=== PATIENT | female | born 1975 | race Caucasian/White ===

== ENCOUNTER 2018-01-20 17:58 | Emergency (ER) | payer OTHER ==
[2018-01-20 19:20] LABS: ABSOLUTE BASOPHILS # (AUTO) 0.1 10^3/uL (0.0-0.2); ABSOLUTE EOSINOPHILS # (AUTO) 0.3 10^3/uL (0.0-0.6); ABSOLUTE LYMPHOCYTES (AUTO) 3.2 10^3/uL (0.5-4.7); ABSOLUTE MONOCYTES (AUTO) 0.9 10^3/uL (0.1-1.4); BASOPHILS % (AUTO) 0.4 % (0-2); EOSINOPHILS % (AUTO) 1.5 % (0-6); HEMATOCRIT 37.4 % (36.0-47.0); HEMOGLOBIN 12.7 g/dL (12.0-15.5); LYMPHOCYTES % (AUTO) 17.5 % (13-45); MEAN CORPUSCULAR HEMOGLOBIN 31.4 pg (27.0-33.4); MEAN CORPUSCULAR VOLUME 92 fl (80-97); MONOCYTES % (AUTO) 4.7 % (3-13); PLATELET COUNT 333 10^3/uL (150-450); RED BLOOD COUNT 4.04 10^6/uL (3.72-5.28); RED CELL DISTRIBUTION WIDTH 13.3 % (11.5-14.0); SEGMENTED NEUTROPHILS % (AUTO) 75.9 % (42-78); TOTAL CELLS COUNTED % (AUTO) 100 %; WHITE BLOOD COUNT 18.4 10^3/uL (4.0-10.5)
--- NOTE | 2018-01-20 19:54 | ER Document Report ---
ED General - General Chief Complaint: Vaginal Bleeding Stated Complaint: VAGINAL BLEEDING Time Seen by Provider: 01/20/18 18:37 Mode of Arrival: Ambulatory Information source: Patient Notes: This is a 42-year-old female with a history of ADHD, 5 para 3, 1 miscarriage in past, last normal menstrual period November 20 who presents to the emergency room with vaginal cramping and vaginal bleeding. Patient states she spotted for the past week but had a gushing blood and clots earlier today with a lot of cramping. The bleeding has since slowed up. She does states she had a positive test 4 weeks ago. TRAVEL OUTSIDE OF THE [place] IN LAST 30 DAYS: No - HPI Onset: Just prior to arrival Onset/Duration: Sudden Quality of pain: Cramping Severity: Moderate Pain Level: 1 Associated symptoms: denies: Chest pain, Fever, Shortness of breath Exacerbated by: Denies Relieved by: Denies Similar symptoms previously: No Recently seen / treated by doctor: No - Related Data Allergies/Adverse Reactions: Penicillins Adverse Reaction (Verified 07/01/13 13:24) Past Medical History - General Information source: Patient - Social History Smoking Status: Unknown if Ever Smoked Cigarette use (# per day): No Chew tobacco use (# tins/day): No Frequency of alcohol use: None Drug Abuse: None Lives with: Family Family History: None Patient has suicidal ideation: No Patient has homicidal ideation: No - Past Medical History Cardiac Medical History: Denies: Hx Coronary Artery Disease, Hx Hypertension Pulmonary Medical History: Denies: Hx Asthma Neurological Medical History: Reports: Hx Migraine Endocrine Medical History: Denies: Hx Diabetes Mellitus Type 1, Hx Diabetes Mellitus Type 2 Renal/ Medical History: Denies: Hx Peritoneal Dialysis Musculoskeltal Medical History: Reports Hx Musculoskeletal Deformity, Reports Hx Musculoskeletal Trauma Skin Medical History: Reports Hx Eczema Psychiatric Medical History: Reports: Hx Anxiety, Hx Attention Deficit Hyperactivity Disorder, Hx Depression Traumatic Medical History: Reports: Hx Traumatic Brain Injury Past Surgical History: Reports: Hx Orthopedic Surgery - bilateral bunionectomy - Immunizations Immunizations up to date: Yes Hx Diphtheria, Pertussis, Tetanus Vaccination: Yes Review of Systems - Review of Systems Constitutional: denies: Chills, Fever EENT: No symptoms reported Cardiovascular: No symptoms reported Respiratory: No symptoms reported Gastrointestinal: No symptoms reported Genitourinary: No symptoms reported Female Genitourinary: See HPI Musculoskeletal: No symptoms reported Skin: No symptoms reported Hematologic/Lymphatic: No symptoms reported Neurological/Psychological: No symptoms reported Physical Exam - Vital signs Vitals: Temp Pulse Resp BP Pulse Ox 98.1 F 97 16 117/80 97 01/20/18 18:10 01/20/18 18:10 01/20/18 18:10 01/20/18 18:10 01/20/18 18:10 Notes: Physical exam: GENERAL: 42-year-old female, alert and oriented 3, no acute distress HEAD: Atraumatic, normocephalic. EYES: Pupils equal round and reactive to light, extraocular movements intact, sclera anicteric, conjunctiva are normal. ENT: TMs normal, nares patent, oropharynx clear without exudates. Moist mucous membranes. NECK: Normal range of motion, supple without obvious mass or JVD. LUNGS: Breath sounds clear to auscultation bilaterally and equal. No wheezes rales or rhonchi. HEART: Regular rate and rhythm without murmurs, rubs or gallops. ABDOMEN: Soft, normoactive bowel sounds. No tenderness to palpation. No guarding, no rebound. No masses appreciated. EXTREMITIES: Normal range of motion, no pitting or edema. No clubbing or cyanosis. NEUROLOGICAL: Cranial nerves II through XII grossly intact. Normal speech, moving all extremities. PSYCH: Normal mood, normal affect. SKIN: Warm, Dry, normal turgor, no rashes or lesions noted. Course - Re-evaluation Re-evalutation: 01/21/18 03:53 I have had a long discussion with the patient. She looks comfortable. Her vital signs are stable. The vaginal bleeding has slowed up for now. She does complain of some cramping. The ultrasound shows an irregular shaped gestational sac with a gestation approximately 6 weeks and 5 days. The patient had been evaluated in the past and was told approximately 1 month ago that she had a 6 week gestation with positive heart tones. Given this, it appears that she is had demise and has impending miscarriage. I have discussed this with her. Her blood type is O+. Her beta quant will need to be trended to confirm lack of viability. I gave the patient the number for the [facility] care center and advised her to follow-up in the next few days. Have advised her to return to the emergency room for worsening pain or worsening bleeding or if she is unable to get into the clinic so that she could be reevaluated in a few days. - Vital Signs Vital signs: Temp Pulse Resp BP Pulse Ox 98.7 F 89 16 114/64 96 01/20/18 23:17 01/20/18 23:17 01/20/18 23:17 01/20/18 23:17 01/20/18 23:17 - Laboratory Result Diagrams: 01/20/18 17:05 01/20/18 17:05 Laboratory results interpreted by me: 01/20/18 01/20/18 17:05 17:05 WBC 18.4 H Absolute Neutrophils 14.0 H Total Protein 6.2 L Beta HCG, Quant 67256.00 H - Diagnostic Test Radiology reviewed: Image reviewed, Reports reviewed - Ultrasound shows an irregular gestational sac approximately 6 weeks, 5 days without a heartbeat. Sac appears low. Discharge - Discharge Clinical Impression: demise Condition: Stable Disposition: HOME, SELF-CARE Instructions: Miscarriage Impending ([facility]) Additional Instructions: As we discussed, the ultrasound shows that the baby is approximately 6 weeks, 5 days gestation and there is no heartbeat. Given that you were previously told that the baby had a heartbeat at 6 weeks gestation approximately 1 month ago, this is consistent with a miscarriage. You will most likely experience more bleeding as the fetus is passed. I want you to rest, drink fluids, take pain medicine as prescribed, take nausea medicine as needed. [facility] for follow-up. There are times if the fetus is not past, that a D&C is done. If the pain worsens or you feel faint, return to the emergency room for evaluation. Prescriptions: Metoclopramide HCl [Reglan 10 mg Tablet] 1 - 2 tab PO ASDIR PRN #14 tablet PRN Reason: Oxycodone HCl/Acetaminophen [Percocet 5-325 mg Tablet] 1 - 2 tab PO ASDIR PRN # 25 tablet PRN Reason: Referrals: KINJAL PILLAI MD [ACTIVE STAFF] - Follow up as needed (This is the number for the [facility])
[2018-01-20 19:56] LABS: ALANINE AMINOTRANSFERASE 34 U/L (9-52); ALBUMIN 3.7 g/dL (3.5-5.0); ALKALINE PHOSPHATASE 63 U/L (38-126); ANION GAP 11 (5-19); ASPARTATE AMINO TRANSFERASE 22 U/L (14-36); BILIRUBIN,DIRECT 0.2 mg/dL (0.0-0.4); BILIRUBIN,TOTAL 0.3 mg/dL (0.2-1.3); BLOOD UREA NITROGEN 7 mg/dL (7-20); CALCIUM 9.2 mg/dL (8.4-10.2); CARBON DIOXIDE 27 mmol/L (22-30); CHLORIDE 103 mmol/L (98-107); GLUCOSE 89 mg/dL (75-110); POTASSIUM 4.1 mmol/L (3.6-5.0); SODIUM 141.4 mmol/L (137-145); TOTAL PROTEIN 6.2 g/dL (6.3-8.2)
[2018-01-20] MEDS ORDERED: ACETAMINOPHEN 325 MG TABLET PO ONE (20:04)
--- NOTE | 2018-01-20 20:36 | RADIOLOGY REPORT (SQ) ---
EXAM DESCRIPTION: U/S OB TRANSVAG W/DOPPLER COMPLETED DATE/TIME: 01/20/2018 8:18 pm REASON FOR STUDY: preg, bleeding COMPARISON: None. TECHNIQUE: Limited transvaginal grayscale ultrasound for evaluation of specific requested obstetrica l parameters. LIMITATIONS: None. FINDINGS: CERVICAL LENGTH: 2.5 cm. The gestational sac is noted at the internal os of the cervix. Irregular Gestational sac shape. CRL 7.6 mm consistent with 6 week week 5 day gestation. No heart tones are identified. OTHER: Ovaries not visualized. IMPRESSION: The gestational sac is noted at the internal os of the cervix. Irregular Gestational s ac shape. CRL 7.6 mm consistent with 6 week week 5 day gestation. No heart tones are identifi ed. Trimester of : First trimester - 0 to 13 weeks. TECHNICAL DOCUMENTATION: JOB ID: [id number] [id number] 2010 [email or web address]- All Rights Reserved Reading location - IP/workstation name: [email or web address]
[2018-01-20] MEDS ORDERED: OXYCODONE-ACETAMINOPHEN 5-325 MG TABLET PO ONE (22:55)
[2018-01-20 23:18] VITALS: BP 114/64
== END 2018-01-20 23:18 | disposition home or self-care (01) ==
LOC: ER 17:58
DX: O02.1 Missed abortion (principal); Z88.0 Allergy status to penicillin
CPT/HCPCS: 36415; 76817; 80053; 84702; 85025; 86900; 86901; 93976; 99284

== ENCOUNTER 2018-01-22 11:55 | Emergency (ER) | payer OTHER ==
--- NOTE | 2018-01-22 13:50 | ER Document Report ---
ED Medical Screen (RME) - General Chief Complaint: Vaginal Bleeding Stated Complaint: POSSIBLE MISCARRIAGE Time Seen by Provider: 01/22/18 13:36 Mode of Arrival: Ambulatory Information source: Patient Notes: 42-year-old female presents for the second time this week with complaint of vaginal bleeding. Patient was seen on 20 January where she was found to have a gestational sac that showed no heart rate. Patient states since that time her bleeding has worsened. She did attempt to follow-up where she was instructed to and was unable to do so. They advised her to return to the emergency room because of the amount of bleeding she was having. Patient has associated dizziness. She states that she is gone through approximately 7 pads and then the last 12 hours. Does have a history of one previous miscarriage. As of 01/22/2018 she was Rh+. Her beta quant was over 43,000. Patient is complaining of worsening cramping, nausea and heavy vaginal bleeding. I have greeted and performed a rapid medical assessment of the patient. A comprehensive evaluation and assessment will be performed by another ED provider. Medical decision making, lab review/xrays if performed will be reviewed by the ED provider assuming care of the patient. PHYSICAL EXAMINATION: GENERAL: Well-appearing, well-nourished and in no acute distress. HEAD: Atraumatic, normocephalic. EYES: Pupils equal round extraocular movements intact, conjunctiva are normal. ENT: Nares patent NECK: Normal range of motion LUNGS: No respiratory distress Musculoskeletal: Normal range of motion NEUROLOGICAL: Normal speech, normal gait. PSYCH: tearful SKIN: Warm, Dry, normal turgor, no rashes or lesions noted. TRAVEL OUTSIDE OF THE [place] IN LAST 30 DAYS: No - HPI Onset: Last week Onset/Duration: Gradual, Persistent, Worse Quality of pain: Cramping Associated Symptoms: Nausea Exacerbated by: Denies Relieved by: Denies Similar symptoms previously: Yes Recently seen / treated by doctor: Yes - Related Data Smoking: Non-smoker Frequency of alcohol use: None Drug Abuse: None Allergies/Adverse Reactions: Penicillins Adverse Reaction (Verified 01/22/18 11:58) Past Medical History - Social History Chew tobacco use (# tins/day): No Frequency of alcohol use: Occasional Drug Abuse: None - Past Medical History Cardiac Medical History: Denies: Hx Coronary Artery Disease, Hx Hypertension Pulmonary Medical History: Denies: Hx Asthma Neurological Medical History: Reports: Hx Migraine Endocrine Medical History: Denies: Hx Diabetes Mellitus Type 1, Hx Diabetes Mellitus Type 2 Renal/ Medical History: Denies: Hx Peritoneal Dialysis Musculoskeltal Medical History: Reports Hx Musculoskeletal Deformity, Reports Hx Musculoskeletal Trauma Skin Medical History: Reports Hx Eczema Psychiatric Medical History: Reports: Hx Anxiety, Hx Attention Deficit Hyperactivity Disorder, Hx Depression Traumatic Medical History: Reports: Hx Traumatic Brain Injury Past Surgical History: Reports: Hx Orthopedic Surgery - bilateral bunionectomy - Immunizations Immunizations up to date: Yes Hx Diphtheria, Pertussis, Tetanus Vaccination: Yes Physical Exam - Vital signs Vitals: Temp Pulse Resp BP Pulse Ox 98.4 F 113 H 16 117/69 97 01/22/18 12:15 01/22/18 12:15 01/22/18 12:15 01/22/18 12:15 01/22/18 12:15 Course - Vital Signs Vital signs: Temp Pulse Resp BP Pulse Ox 98.4 F 113 H 16 117/69 97 01/22/18 12:15 01/22/18 12:15 01/22/18 12:15 01/22/18 12:15 01/22/18 12:15
[2018-01-22 14:27] LABS: ABSOLUTE BASOPHILS # (AUTO) 0.1 10^3/uL (0.0-0.2); ABSOLUTE EOSINOPHILS # (AUTO) 0.2 10^3/uL (0.0-0.6); ABSOLUTE LYMPHOCYTES (AUTO) 3.4 10^3/uL (0.5-4.7); ABSOLUTE MONOCYTES (AUTO) 0.5 10^3/uL (0.1-1.4); ABSOLUTE NEUT (AUTO) 8.4 10^3/uL (1.7-8.2); BASOPHILS % (AUTO) 0.5 % (0-2); EOSINOPHILS % (AUTO) 1.5 % (0-6); HEMATOCRIT 31.8 % (36.0-47.0); HEMOGLOBIN 10.8 g/dL (12.0-15.5); LYMPHOCYTES % (AUTO) 26.8 % (13-45); MEAN CORPUSCULAR HEMOGLOBIN 31.5 pg (27.0-33.4); MEAN CORPUSCULAR VOLUME 93 fl (80-97); MONOCYTES % (AUTO) 4.3 % (3-13); PLATELET COUNT 353 10^3/uL (150-450); RED BLOOD COUNT 3.43 10^6/uL (3.72-5.28); RED CELL DISTRIBUTION WIDTH 13.1 % (11.5-14.0); SEGMENTED NEUTROPHILS % (AUTO) 66.9 % (42-78); TOTAL CELLS COUNTED % (AUTO) 100 %; WHITE BLOOD COUNT 12.6 10^3/uL (4.0-10.5)
[2018-01-22] MEDS ORDERED: NORMAL SALINE 1000 ML 1,000 ML IV ONE (14:48)
--- NOTE | 2018-01-22 14:52 | ER Document Report ---
ED GI/ - General Chief Complaint: Vaginal Bleeding Stated Complaint: POSSIBLE MISCARRIAGE Time Seen by Provider: 01/22/18 13:36 Mode of Arrival: Ambulatory Notes: The patient is a 42-year-old female, , presents with continued vaginal bleeding and lower pelvic cramping. She was told she was miscarrying 2 days ago in the ER. She tried follow-up at the OB clinic, but was sent to the ER due to concern about too much blood loss. Patient has a picture of a gestational sac that she passed early this morning. Since she passed this gestational sac, her bleeding has slowed down. Her blood type is O+ and her hCG quant was 43,000 two days ago. She denies lightheadedness, syncope, fevers , dysuria, headache or chest pain. TRAVEL OUTSIDE OF THE [place] IN LAST 30 DAYS: No - Related Data Allergies/Adverse Reactions: Penicillins Adverse Reaction (Verified 01/22/18 11:58) Past Medical History - General Information source: Patient - Social History Smoking Status: Current Every Day Smoker Chew tobacco use (# tins/day): No Frequency of alcohol use: Occasional Drug Abuse: None Family History: None Patient has suicidal ideation: No Patient has homicidal ideation: No - Past Medical History Cardiac Medical History: Denies: Hx Coronary Artery Disease, Hx Hypertension Pulmonary Medical History: Denies: Hx Asthma Neurological Medical History: Reports: Hx Migraine Endocrine Medical History: Denies: Hx Diabetes Mellitus Type 1, Hx Diabetes Mellitus Type 2 Renal/ Medical History: Denies: Hx Peritoneal Dialysis Musculoskeltal Medical History: Reports Hx Musculoskeletal Deformity, Reports Hx Musculoskeletal Trauma Skin Medical History: Reports Hx Eczema Psychiatric Medical History: Reports: Hx Anxiety, Hx Attention Deficit Hyperactivity Disorder, Hx Depression Traumatic Medical History: Reports: Hx Traumatic Brain Injury Past Surgical History: Reports: Hx Orthopedic Surgery - bilateral bunionectomy - Immunizations Immunizations up to date: Yes Hx Diphtheria, Pertussis, Tetanus Vaccination: Yes Review of Systems - Review of Systems Notes: REVIEW OF SYSTEMS: CONSTITUTIONAL: -fevers, -chills EENT: -eye pain, -difficulty swallowing, -nasal congestion CARDIOVASCULAR: -chest pain, -syncope. RESPIRATORY: -cough, -SOB GASTROINTESTINAL: +lower abdominal pain, -nausea, -vomiting, -diarrhea GENITOURINARY: -dysuria, -hematuria, +vaginal bleeding MUSCULOSKELETAL: -back pain, -neck pain SKIN: -rash or skin lesions. HEMATOLOGIC: -easy bruising or bleeding. LYMPHATIC: -swollen, enlarged glands. NEUROLOGICAL: -altered mental status or loss of consciousness, -headache, - neurologic symptoms PSYCHIATRIC: -anxiety, -depression. ALL OTHER SYSTEMS REVIEWED AND NEGATIVE. Physical Exam - Vital signs Vitals: Temp Pulse Resp BP Pulse Ox 98.4 F 113 H 16 117/69 97 01/22/18 12:15 01/22/18 12:15 01/22/18 12:15 01/22/18 12:15 01/22/18 12:15 - Notes Notes: PHYSICAL EXAMINATION: GENERAL: Well-appearing, well-nourished and in no acute distress. HEAD: Atraumatic, normocephalic. EYES: Pupils equal round and reactive to light, extraocular movements intact, sclera anicteric, conjunctiva are normal. ENT: nares patent, oropharynx clear without exudates. Moist mucous membranes. NECK: Normal range of motion, supple without lymphadenopathy LUNGS: Breath sounds clear to auscultation bilaterally and equal. No wheezes rales or rhonchi. HEART: Regular rhythm and rate ABDOMEN: Soft, nontender, normoactive bowel sounds. No guarding, no rebound. No masses appreciated. : (chaperoned by KORI Whitfield) Small amount of oozing from cervical os, no tissue or clots seen in the vagina, firm uterus and nontender adnexa EXTREMITIES: Normal range of motion, no pitting or edema. No cyanosis. NEUROLOGICAL: Cranial nerves grossly intact. Normal speech, normal gait. Normal sensory and motor exams. PSYCH: Normal mood, normal affect. SKIN: Warm, Dry, normal turgor, no rashes or lesions noted. Course - Re-evaluation Re-evalutation: Patient is hemodynamically stable. Her initial tachycardia resolved upon my evaluation. Hemoglobin dropped one point, but she does not require blood transfusion at this time. exam does not show heavy bleeding. It does show a small amount of oozing from the cervix, which is most likely normal after this miscarriage. Her beta-HCG also dropped from 42,000 to 22,000 today. Instructed her to continue anti-inflammatories and use Percocet for severe pain she will follow-up with the OB this week for recheck of her symptoms. - Vital Signs Vital signs: Temp Pulse Resp BP Pulse Ox 98.4 F 113 H 16 117/69 97 01/22/18 12:15 01/22/18 12:15 01/22/18 12:15 01/22/18 12:15 01/22/18 12:15 - Laboratory Result Diagrams: 01/22/18 13:51 Laboratory results interpreted by me: 01/22/18 01/22/18 13:51 13:51 WBC 12.6 H RBC 3.43 L Hgb 10.8 L Hct 31.8 L Absolute Neutrophils 8.4 H Beta HCG, Quant 23547.00 H Discharge - Discharge Clinical Impression: Complete miscarriage Condition: Stable Disposition: HOME, SELF-CARE Additional Instructions: Your beta hCG today is 21,929. You most likely had a complete miscarriage. Small amount of bleeding is normal, but if you begin to have heavy bleeding or feel like you are about to pass out, return to the ER. Take Naprosyn every 12 hours to help with constricting the uterine vessels and to help with pain. Percocet for severe pain. Follow-up with the OB clinic as scheduled. FOLLOW-UP CARE: If you have been referred to a physician for follow-up care, call the physician s office for an appointment as you were instructed or within the next two days. If you experience worsening or a significant change in your symptoms (very heavy bleeding with large clots of blood, passage of tissue, more severe abdominal / pelvic pain or cramping, feeling faint or severe weakness, fever, etc.), notify the physician immediately or return to the Emergency Department at any time for re-evaluation. OBSTETRIC-GYNECOLOGIC (OB-SEED PRODUCTION FIELD SUPERVISOR) PHYSICIANS IN [place]: The [facility] [address], [place] [phone] [facility] [address], [place] [phone] For active duty and dependents diagnosed with a threatened or miscarriage, you should follow up in the following manner: Standard patients who have a local civilian provider should follow up with that provider. Patients of the Family Practice Clinic should call your Team Nurse at 8: 00 am the following morning for further instructions. If you are neither a Standard patient nor a patient of the Family Practice Clinic, you should follow up at the [facility] ([facility]) . Patients already enrolled in the [facility] OB Clinic, Prime patients not assigned to the Family Practice Clinic, and Active Duty patients not assigned to Family Practice Clinic should report to the [facility] Lab at 8:00 am the next morning that the [facility] OB Clinic is open and then you will be seen in the OB Clinic at 11:00 am. Referrals: EVI MONTANA MD [ACTIVE STAFF] - Follow up as needed
[2018-01-22 15:22] VITALS: BP 101/66
== END 2018-01-22 15:26 | disposition home or self-care (01) ==
LOC: ER 11:55
DX: O03.9 Complete or unspecified spontaneous abortion without complication (principal); R10.30 Lower abdominal pain, unspecified; F17.200 Nicotine dependence, unspecified, uncomplicated
CPT/HCPCS: 36415; 84702; 85025; 86900; 86901; 99284

== ENCOUNTER 2018-01-28 08:27 | Day surgery (SDC) | payer OTHER ==
[~2018-01-28 08:27] MED LIST: LIDOCAINE 1%/EPINEPHRINE INJ 20 ML VIAL ONE; METHYLERGONOVINE MALEATE INJ/PF 0.2 MG/1 ML AMPULE ONE
[2018-01-28 09:26] LABS: HEMATOCRIT 25.9 % (36.0-47.0); HEMOGLOBIN 8.9 g/dL (12.0-15.5); MEAN CORPUSCULAR HGB CONC 34.2 g/dL (32.0-36.0); MEAN CORPUSCULAR VOLUME 94 fl (80-97); PLATELET COUNT 400 10^3/uL (150-450); RED BLOOD COUNT 2.77 10^6/uL (3.72-5.28); RED CELL DISTRIBUTION WIDTH 13.2 % (11.5-14.0); WHITE BLOOD COUNT 8.4 10^3/uL (4.0-10.5)
[2018-01-28 09:27] LABS: APPEARANCE,URINE SLIGHTLY-CLOUDY; BILIRUBIN,URINE NEGATIVE (NEGATIVE); COLOR,URINE YELLOW; GLUCOSE, URINE NEGATIVE (NEGATIVE); KETONES,URINE 20 mg/dL (NEGATIVE); LEUKOCYTE ESTERASE,URINE MODERATE (NEGATIVE); NITRITE,URINE NEGATIVE (NEGATIVE); PROTEIN,URINE NEGATIVE (NEGATIVE); URINE SPECIFIC GRAVITY 1.017; UROBILINOGEN,URINE NEGATIVE mg/dL (<2.0)
[2018-01-28] MEDS ORDERED: MIDAZOLAM 2 MG/2 ML INJ ONE (09:51)
[2018-01-28] MEDS ORDERED: FENTANYL CITRATE INJ/PF 100 MCG/2 ML AMPUL ONE (09:51)
[2018-01-28] MEDS ORDERED: PROPOFOL INJ 200 MG/20 ML VIAL IV ONE (09:52)
[2018-01-28] MEDS ORDERED: OXYCODONE-ACETAMINOPHEN 5-325 MG TABLET PO PRN ×2 (10:15)
[2018-01-28] MEDS ORDERED: PROMETHAZINE HCL INJ 25 MG/1 ML VIAL IV PRN ×2 (10:15)
[2018-01-28] MEDS ORDERED: MORPHINE SULFATE 10 MG/ML INJ IV PRN (10:15)
[2018-01-28] MEDS ORDERED: DIPHENHYDRAMINE HCL 50 MG/ML VIAL IV PRN (10:15)
[2018-01-28] MEDS ORDERED: FENTANYL CITRATE INJ/PF 100 MCG/2 ML AMPUL IV PRN ×3 (10:15)
[2018-01-28] MEDS ORDERED: MEPERIDINE HCL/PF INJ 25 MG/1 ML DISP.SYRIN IV PRN (10:15)
--- NOTE | 2018-01-28 10:29 | OPERATIVE REPORT E ---
Operative Report NAME: ROMY BURNETT : 1975 AGE: 42Y DATE OF SURGERY: 01/28/2018 ROOM: PREOPERATIVE DIAGNOSIS: Missed AB. POSTOPERATIVE DIAGNOSIS: Missed AB. OPERATION: Suction D and C. SURGEON: Jenni JOSE M.D. ANESTHESIA: General. ESTIMATED BLOOD LOSS: Less than 20 mL. TISSUE REMOVED: Products of conception. PROCEDURE: Patient was placed in a dorsal lithotomy position, prepped and draped in the usual sterile fashion. A speculum was placed. Cervix was visualized and grasped with a single-tooth tenaculum, sounded to a depth of 9 cm. The os was already dilated sufficiently to admit a #8 suction catheter. Suction curettage was performed followed by sharp curettage followed by repeat suction. The single-tooth tenaculum was removed. Hemostasis was noted. The speculum was removed and the procedure terminated. She tolerated it well and was taken to recovery in good condition. DICTATING PHYSICIAN: Jenni JOSE M.D. [id number] PHY#: [id number] ID: [id number] JOB#: [id number] ACCT: [id number] cc:Jenni JOSE M.D. >
[2018-01-28] MEDS ORDERED: KETOROLAC TROMETHAMINE INJ/PF 30 MG/1 ML SDV ONE (10:55)
[2018-01-28] MEDS ORDERED: IBUPROFEN 800 MG TABLET ONE (11:24)
[2018-01-28] MEDS ORDERED: ONDANSETRON 4 MG TAB.RAPDIS PO PRN (11:24)
[2018-01-28] MEDS ORDERED: IBUPROFEN 800 MG TABLET PO PRN (11:27)
[2018-01-28] MEDS ORDERED: ONDANSETRON HCL 8 MG TABLET PO PRN (11:27)
[2018-01-28 13:55] VITALS: BP 116/85
[2018-01-28] MEDS ORDERED: IBUPROFEN 800 MG TABLET PO SCH (14:00)
== END 2018-01-28 13:10 | disposition home or self-care (01) ==
LOC: OROUT 08:27
PROVIDERS: ATTEND Student in an Organized Health Care Education/Training Program
DX: O02.1 Missed abortion (principal); F17.210 Nicotine dependence, cigarettes, uncomplicated; F90.9 Attention-deficit hyperactivity disorder, unspecified type; F43.10 Post-traumatic stress disorder, unspecified; F41.9 Anxiety disorder, unspecified; F32.9 Major depressive disorder, single episode, unspecified; Z79.899 Other long term (current) drug therapy; Z88.0 Allergy status to penicillin
CPT/HCPCS: 36415; 85027; 81001; 88305 ×2; 59820; J2250; J3010; J1885; J2704; 1965; J2210; J3490

== ENCOUNTER 2018-03-29 19:50 | Emergency (ER) | payer OTHER ==
[2018-03-29] MEDS ORDERED: SULFAMETHOXAZOLE/TRIMETHOPRIM 800-160 MG TABLET PO ONE (21:49)
--- NOTE | 2018-03-29 21:53 | ER Document Report ---
ED General - General Chief Complaint: Abscess Stated Complaint: POSSIBLE BUG BITE Time Seen by Provider: 03/29/18 21:14 Notes: Patient is a 42-year-old female without chronic medical problems who presents with 24 hours of pain and swelling to the area on her right mid back. She states that the area has become increasingly painful since it started to become irritated earlier this morning. She describes a dull, throbbing, constant pain to the area. Touching the area worsens the pain. Nothing improves the pain. She denies any history of similar symptoms in the past. She states that she has felt fatigued and somewhat unwell all day but denies any fever. She has not seen her general doctor regarding today's concerns. She has noted some drainage from the affected area. TRAVEL OUTSIDE OF THE [place] IN LAST 30 DAYS: No - Related Data Allergies/Adverse Reactions: misoprostol [From Cytotec] Adverse Reaction (Verified 01/28/18 09:10) Rash Penicillins Adverse Reaction (Verified 01/28/18 09:09) Hives Past Medical History - General Information source: Patient - Social History Smoking Status: Never Smoker Chew tobacco use (# tins/day): No Frequency of alcohol use: None Drug Abuse: None Family History: Reviewed & Not Pertinent Patient has suicidal ideation: No Patient has homicidal ideation: No - Past Medical History Cardiac Medical History: Denies: Hx Coronary Artery Disease, Hx Heart Attack, Hx Hypertension Pulmonary Medical History: Denies: Hx Asthma, Hx Bronchitis, Hx COPD, Hx Pneumonia Neurological Medical History: Reports: Hx Migraine, Hx Seizures - 2017 r/t stopping clonopin on her own . Denies: Hx Cerebrovascular Accident Endocrine Medical History: Denies: Hx Diabetes Mellitus Type 1, Hx Diabetes Mellitus Type 2 Renal/ Medical History: Denies: Hx Peritoneal Dialysis Musculoskeletal Medical History: Reports Hx Arthritis - LOWER BACK, Reports Hx Musculoskeletal Deformity, Reports Hx Musculoskeletal Trauma Skin Medical History: Reports Hx Eczema Psychiatric Medical History: Reports: Hx Anxiety, Hx Attention Deficit Hyperactivity Disorder, Hx Depression Traumatic Medical History: Reports: Hx Traumatic Brain Injury Past Surgical History: Reports: Hx Orthopedic Surgery - bilateral bunionectomy - Immunizations Immunizations up to date: Yes Hx Diphtheria, Pertussis, Tetanus Vaccination: - UNSURE Review of Systems - Review of Systems Notes: Constitutional: Negative for fever. HENT: Negative for sore throat. Eyes: Negative for visual changes. Cardiovascular: Negative for chest pain. Respiratory: Negative for shortness of breath. Gastrointestinal: Negative for abdominal pain, vomiting or diarrhea. Genitourinary: Negative for dysuria. Musculoskeletal: Negative for back pain. Skin: Positive for right back abscess Neurological: Negative for headaches, weakness or numbness. 10 point ROS negative except as marked above and in HPI. Physical Exam - Vital signs Vitals: Temp Pulse Resp BP Pulse Ox 98.6 F 108 H 16 130/83 H 91 L 03/29/18 20:02 03/29/18 20:02 03/29/18 20:02 03/29/18 20:02 03/29/18 20:02 Interpretation: Normal - Please note that the documented pulse oximetry is not accurate. The triage vital she reads 98% not 91% Notes: PHYSICAL EXAMINATION: GENERAL: Well-appearing, well-nourished and in no acute distress. HEAD: Atraumatic, normocephalic. EYES: sclera anicteric, conjunctiva are normal. ENT: Moist mucous membranes. NECK: Normal range of motion LUNGS: Normal work of breathing HEART: 2+ radial pulses bilaterally EXTREMITIES: no pitting or edema. No cyanosis. NEUROLOGICAL: No focal neurological deficits. Moves all extremities spontaneously and on command. PSYCH: Normal mood, normal affect. SKIN: Warm, Dry, normal turgor, there is a 1 x 1 cm abscess on the right mid back with minimal surrounding erythema. Course - Re-evaluation Re-evalutation: 03/29/18 21:47 Patient presents with what appears to be an infected sebaceous cyst on the right mid back which was incised and drained without difficulty. Patient tolerated the procedure well. There is some mild surrounding erythema but patient's vitals are otherwise within normal limits and do not suggest a septic picture. No indication for labs. The wound is been cleaned and dressed and the patient has been started on trimethoprim sulfamethoxazole. At this time will discharge with return precautions and follow-up recommendations. Verbal discharge instructions given a the bedside and opportunity for questions given. Medication warnings reviewed. Patient is in agreement with this plan and has verbalized understanding of return precautions and the need for primary care follow-up in the next 24-72 hours. - Vital Signs Vital signs: Temp Pulse Resp BP Pulse Ox 97.4 F 96 14 103/69 100 03/29/18 22:04 03/29/18 22:04 03/29/18 22:04 03/29/18 22:04 03/29/18 22:04 Procedures - Incision and Drainage Back Type: Simple Anesthetic type: 1% Lidocaine mL's of anesthetic: 2 Blade size: 11 I&D procedure: Betadine prep applied Incision Method: Incision made by scalpel Amount/type of drainage: 3 cc of purulent drainage Discharge - Discharge Clinical Impression: Abscess of back Condition: Good Disposition: HOME, SELF-CARE Additional Instructions: You were seen for an abscess that required drainage. Please clean this area with soap and water twice daily and apply a topical antibiotic. Dress the area after each cleaning. Please return if you develop fever, vomiting, the pain at the site worsens, you notice spreading redness from the area, or you have any other symptoms that are concerning to you. Prescriptions: Sulfamethoxazole/Trimethoprim [Bactrim Ds Tablet] 2 tab PO BID #28 tablet Referrals: ELLY TRIVEDI [NO LOCAL MD] - Follow up as needed
[2018-03-29 22:06] VITALS: BP 103/69
== END 2018-03-29 22:06 | disposition home or self-care (01) ==
LOC: ER 19:50
DX: L02.212 Cutaneous abscess of back [any part, except buttock and flank] (principal); R53.83 Other fatigue
CPT/HCPCS: 99283